=== PATIENT | female | born 1965 | race Caucasian/White ===

== ENCOUNTER 2018-04-26 15:11 | Emergency (ER) | payer OTHER ==
[~2018-04-26] VITALS: Ht 165.1 cm; Wt 80.4 kg
[2018-04-26] MEDS ORDERED: KEFLEX500 MG PO (16:57)
[2018-04-26 17:14] VITALS: BP 110/82
== END 2018-04-26 17:15 | disposition home or self-care (01) ==
LOC: EME 15:11
PROC: 0HQGXZZ Repair Left Hand Skin, External Approach (ICD-10-PCS; principal; 2018-04-26)
DX: S61.211A Laceration without foreign body of left index finger without damage to nail, initial encounter (principal); W27.2XXA Contact with scissors, initial encounter; Z87.891 Personal history of nicotine dependence
CPT/HCPCS: 99281; 99283